=== PATIENT | male | born 1980 | race Caucasian/White ===

== ENCOUNTER 2022-09-04 14:06 | Emergency (ER) | payer MEDICAID, SELFPAY ==
[2022-09-04] VITALS (26 sets, daily range): BP systolic 159–175; BP diastolic 86–129; PULSE 72–100; RESP 14–21; TEMP 36.8; O2SAT 98–100
--- NOTE | 2022-09-04 14:19 | ED.SEIZURE ---
HPI - Seizure General Chief Complaint: Seizure Stated Complaint: Seizure History of Present Illness HPI Narrative: Pt had 3 brief seizures today wihtout a post ictal period. Pt says he has a history of seizures due to a TBI and has been off seizure meds for 4 months. Pt [facility] [place] and does not have PCP and [facility]. Pt feels fine now. Pt was upset because one of the medics mentioned psuedoseizure at arrival here and pt was offended. Discussed with him and he is now calm and wants to be treated. Related Data Allergies Allergy/AdvReac Type Severity Reaction Status Date / Time iohexol Allergy Unknown Verified 09/04/22 14:19 [From contrast - CT, X-RAY] Review of Systems Review of Systems: All systems reviewed & are unremarkable except as noted in HPI and below Exam Const: General: healthy appearing Nutritional Appearance: well nourished Orientation/consciousness: patient oriented x3 Limitations: no limitations HENMT: Head: normal to inspection Eyes: Pupils: Equal, round and reactive pupils present EOM: EOMs intact bilaterally Neck: Neck: normal visual inspection and no lymphadenopathy Chest: Chest palpation & inspection: normal inspection of the chest Resp: Effort & Inspection: normal respiratory effort Auscultation: clear to auscultation bilaterally Cardio: Rate: regular rate Rhythm: regular rhythm GI: GI Palp: Yes Soft to palpation Auscultation: normal bowel sounds Skin: General skin exam: normal color Rashes: no rashes Neuro: General: patient oriented x3, moves all extremities, no meningeal signs and no focal motor deficits Cranial nerves: Yes Nystagmus not present Speech: normal speech Extrem: General: normal to inspection and no clubbing, cyanosis or edema Psych: Appearance: grossly normal and well kempt Mental Status: mental status grossly normal Affect: normal affect Attitude: cooperative Course Course Emergency Course: pr sleeping and difficult to arouse after meds and seizure eentuall awake and alert said he takes gabapentin 1200 mg qd and keppra 400 mg bid Vital Signs Vital signs: Vital Signs Temperature 98.2 F 09/04/22 13:52 Pulse Rate 100 09/04/22 13:52 Respiratory Rate 17 09/04/22 13:52 Blood Pressure 165/86 H 09/04/22 13:52 Pulse Oximetry 99 09/04/22 13:52 Temperature 98.2 F 09/04/22 13:52 Pulse Rate 86 09/04/22 19:22 Respiratory Rate 16 09/04/22 19:22 Blood Pressure 160/120 H 09/04/22 19:22 Pulse Oximetry 98 09/04/22 19:17 MDM - Seizure Lab Data Result diagrams: 09/04/22 14:51 09/04/22 14:51 Labs: Lab Results 09/04/22 09/04/22 Range/Units 14:51 14:51 WBC 8.9 (4.5-10.0) K/mm3 RBC 4.91 (4.6-6.20) M/mm3 Hgb 15.1 (14.0-18.0) g/dL Hct 45.2 (42.0-52.0) % MCV 92.1 (80-100) fl MCH 30.8 (26-34) pg MCHC 33.4 (32-36) g/dl RDW 13.8 (11.5-14.5) % Plt Count 224 (150-375) k/mm3 MPV 9.5 (7.4-10.4) fl Immature Gran % (Auto) 1.2 H (0-0.5) % Neut % (Auto) 66.5 (45.5-73.1) % Lymph % (Auto) 24.0 (18.3-44.2) % [place] % (Auto) 4.7 (2.6-8.5) % Eos % (Auto) 3.0 (0-4.4) % Baso % (Auto) 0.6 (0.2-1.2) % Lymph # (Auto) 2.13 (0.9-3.2) K/mm3 [place] # (Auto) 0.4 (0.1-0.6) K/mm3 Eos # (Auto) 0.3 (0-0.3) K/mm3 Baso # (Auto) 0.1 (0.0-0.1) K/mm3 Abs Immat Gran (auto) 0.11 H (0.00-0.031) K/mm3 Absolute Neuts (auto) 5.9 (1.3-6.7) K/mm3 Absolute Nucleated RBC 0.0 (0.0-0.012) K/mm3 Nucleated RBC % 0.0 (0.0-0.2) % Sodium 144 (137-145) mmol/L Potassium 3.9 (3.4-5.0) mmol/L Chloride 106 (98-107) mmol/L Carbon Dioxide 26 (22-30) mmol/L Anion Gap 12 (8-16) mmol/L BUN 15 (9-20) mg/dL Creatinine 1.00 (0.7-1.3) mg/dL Estim Creat Clear Calc 84 ml/min Estimated GFR > 60 (59 - ) Glucose 95 (65-110) mg/dL Calcium 8.4 (8.4-10.2) mg/dL Total Bilirubin 0
[2022-09-04] MEDS: LORazepam INJ (*CRX) 2 MG/ML VIAL IV PUSH (14:20)
--- NOTE | 2022-09-04 14:42 | ECG_ITS ---
Measurements Intervals [place] Rate: 94 P: 32 CT: 137 QRS: 74 QRSD: 86 T: 209 QT: 341 QTc: 428 Interpretive Statements SINUS RHYTHM LOW QRS VOLTAGE IN EXTREMITY LEADS [QRS DEFLECTION < 0.5 mV IN LIMB LEADS] ST-T WAVE ABNORMALITY POOR R-WAVE PROGRESSION NO PREVIOUS ECG AVAILABLE FOR COMPARISON Electronically Signed On 09-05-2022 16:31:18 CDT by Tawana Suh M.D.
[2022-09-04 14:55] LABS: Basophils Absolute Auto 0.1 K/mm3 (0.0-0.1); Basophils Percent Auto 0.6 % (0.2-1.2); Eosinophils Absolute Auto 0.3 K/mm3 (0-0.3); Hematocrit 45.2 % (42.0-52.0); Hemoglobin 15.1 g/dL (14.0-18.0); Immature Granulocyte Absolute 0.11 K/mm3 (0.00-0.031); Immature Granulocyte Percent A 1.2 % (0-0.5); Lymphocytes Absolute Auto 2.13 K/mm3 (0.9-3.2); Mean Corpuscular HGB Conc 33.4 g/dl (32-36); Mean Corpuscular Hemoglobin 30.8 pg (26-34); Mean Corpuscular Volume 92.1 fl (80-100); Mean Platelet Volume 9.5 fl (7.4-10.4); Monocytes Absolute Auto 0.4 K/mm3 (0.1-0.6); Monocytes Percent Auto 4.7 % (2.6-8.5); Neutrophils Absolute Auto 5.9 K/mm3 (1.3-6.7); Neutrophils Percent Auto 66.5 % (45.5-73.1); Platelet Count Result 224 k/mm3 (150-375); Red Blood Count 4.91 M/mm3 (4.6-6.20); Red Cell Distribution Width 13.8 % (11.5-14.5); White Blood Count 8.9 K/mm3 (4.5-10.0)
[2022-09-04] MEDS: levETIRAcetam 1000MG/NACL100ML 1,000 MG/100 ML BAG 400 MG IVPB (14:57)
[2022-09-04 15:07] LABS: Alanine Aminotransferase 18 U/L (6-50); Albumin Level 3.8 g/dL (3.5-5.1); Alkaline Phosphatase 83 U/L (38-126); Anion Gap 12 mmol/L (8-16); Aspartate Amino Transferase 21 U/L (17-59); Bilirubin,Total 0.3 mg/dL (0.2-1.3); Blood Urea Nitrogen 15 mg/dL (9-20); Calcium 8.4 mg/dL (8.4-10.2); Carbon Dioxide 26 mmol/L (22-30); Chloride 106 mmol/L (98-107); Estimated CRCL calculation 84 ml/min; Estimated Glomerular Filt Rate > 60; Glucose 95 mg/dL (65-110); Potassium 3.9 mmol/L (3.4-5.0); Sodium 144 mmol/L (137-145)
--- NOTE | 2022-09-04 19:10 | PC.NURSE ---
upon attempt to discharge pt, pt stating that he does not want to go home. will not give reason. does c/o a headache rated 16/10. pt has urinal on bed with some urine in it but pt and bed saturated in urine. epd informed.
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
--- NOTE | 2022-09-04 19:57 | PC.NURSE ---
[employer] arrived at hospital at approximately 1940 and speaking with pt at this time. Pt phone, shoes,wet clothes, and d/c instruction bagged and at bedside.
--- NOTE | 2022-09-04 20:30 | PC.NURSE ---
Pt left in PD custody per security.
--- NOTE | 2022-09-04 22:40 | PC.NURSE ---
PT THEN REFUSED TO HAVE LABS DRAWN AT 2225. SO, EDP PUT PT UP FOR DISCHARGE. I WENT INTO PT'S ROOM #5 AT 2240. I STARTED TALKING TO HIM AND WENT TO REMOVE MONITORING EQUIPMENT, HE THEN LUNGED AT ME AND YELLED FUCK YOU TWICE AT ME. I WAS CONCERNED FOR MY OWN SAFETY WELL THE SAFETY MY STAFF, SO I AGAIN CALLED [facility]. WHEN 2 OFFICERS FROM [employer] ARRIVED I EXPLAINED TO THEM THAT I WISHED TO PRESS CHARGES, [employer] DID ARREST HIM, AND REMOVE HIM FROM OUR PREMISES.
== END 2022-09-04 20:30 ==
PROVIDERS: Emergency Provider Emergency Medicine
DX: R56.1 Post traumatic seizures (principal); S06.9XAS Unspecified intracranial injury with loss of consciousness status unknown, sequela; X58.XXXS Exposure to other specified factors, sequela
CPT/HCPCS: 36415; 80053; 85025; 93005; 96374; 96375; 99284; J1953; J2060

== ENCOUNTER 2022-09-04 21:38 | Emergency (ER) | payer MEDICAID, SELFPAY ==
[2022-09-04 21:41] VITALS: BP 193/156; PULSE 93; RESP 16; TEMP 37.2; O2SAT 100
--- NOTE | 2022-09-04 22:12 | PC.NURSE ---
Pt was here in the ER and discharged. Pt was brought back in via [facility]. Pt was brought back by EMS due to multiple seizures. Pt was placed in the bed and turning to the side and non-responsive upon assessment. Pt states he can feel when he is about to seizures. pt did have multiple episodes while assessing patient. DR Addison aware
--- NOTE | 2022-09-04 22:27 | PC.NURSE ---
At 22:27 patient refused to let me draw blood. His words yea we are not doing that - Edith
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
--- NOTE | 2022-09-04 22:31 | PC.NURSE ---
Pt refusing blood draw from staff.
--- NOTE | 2022-09-04 22:41 | PC.NURSE ---
pt refused blood draw from [facility] [employer].
--- NOTE | 2022-09-04 22:53 | PC.NURSE ---
PD is here escorted pt out.
== END 2022-09-04 23:21 ==
PROVIDERS: Emergency Provider Emergency Medicine
DX: R56.9 Unspecified convulsions (principal); Z87.820 Personal history of traumatic brain injury
CPT/HCPCS: 99281

== ENCOUNTER 2022-09-05 14:17 | Inpatient (IN) | payer MEDICAID, SELFPAY ==
--- NOTE | ~2022-09-05 | XR_ITS ---
EXAMINATION: XR chest 2V DATE: 09/05/2022 17:31 INDICATION: Left chest pain. TECHNIQUE: Frontal and lateral views of the chest were obtained. COMPARISON: None. FINDINGS: The chest demonstrates clear lungs without pneumonia, pleural effusion, or pneumothorax. Th e heart size is normal. There are old healed left rib fractures. IMPRESSION: 1. No acute cardiopulmonary disease. Reviewed, dictated and finalized at location A.
--- NOTE | ~2022-09-05 | CT_ITS ---
EXAMINATION: CT brain wo con DATE: 09/08/2022 14:43 INDICATION: seizure . TECHNIQUE: Computed tomography (CT) of the head was performed without intravenous contrast. The mA wa s adjusted according to patient size. Iterative reconstruction technique was employed. The dose-lengt h product was 605.33 mGy-cm. COMPARISON: 09/05/2022 FINDINGS: No acute intracranial hemorrhage or extra-axial fluid collection. No hydrocephalus, mass, or herniation. No acute ischemic infarct. Unremarkable dural venous sinus attenuation. No acute osseous abnormality. The aerated spaces are clear. IMPRESSION: No acute intracranial process. Reviewed, dictated and finalized at location K.
--- NOTE | ~2022-09-05 | CT_ITS ---
EXAMINATION: CT BRAIN W/O DATE: 09/05/2022 17:27 INDICATION: Headache. TECHNIQUE: Computed tomography (CT) of the head was performed without intravenous contrast. The dose- length product was 605.33 mGy-cm. Automated exposure control and iterative reconstruction technique w ere employed. COMPARISON: No prior studies for comparison. FINDINGS: Normal brain parenchymal volume for age. Normal stephen-white differentiation. No acute intrac ranial hemorrhage, infarction, mass or mass effect. No ventriculomegaly or midline shift. Midline sagittal images demonstrate a normal corpus callosum, c raniovertebral junction and sella turcica. Basilar cisterns are patent. Paranasal sinuses and mastoids are pneumatized. No depressed skull fractures. IMPRESSION: 1. No acute intracranial abnormality. Reviewed, dictated and finalized at location A.
[2022-09-05 14:40] VITALS: BP 160/100; PULSE 94; RESP 18; O2SAT 99
--- NOTE | 2022-09-05 17:15 | ECG_ITS ---
Measurements Intervals [place] Rate: 90 P: 40 [place]: 135 QRS: 20 QRSD: 77 T: 5 QT: 352 QTc: 432 Interpretive Statements SINUS RHYTHM WITH OCCASIONAL SUPRAVENTRICULAR PREMATURE COMPLEXES MINIMAL VOLTAGE CRITERIA FOR LVH, CONSIDER NORMAL VARIANT [MEETS CRITERIA IN ONE OF: R(aVL), S(V1), R(V5), R(V5/V6)+S(V1)] NONSPECIFIC T-WAVE ABNORMALITY COMPARED TO ECG 09/04/2022 14:18:51 NO SIGNIFICANT CHANGES Electronically Signed On 09-06-2022 13:35:38 CDT by Bteo Nance M.D.
--- NOTE | 2022-09-05 17:17 | ED.SEIZURE ---
HPI - Seizure General Chief Complaint: Seizure <ABHIJEET Acevedo Last Filed: 09/06/22 00:41> Stated Complaint: seizures <ABHIJEET Acevedo Last Filed: 09/06/22 00:41> Time Seen by Provider: 09/05/22 17:06 <ABHIJEET Acevedo Last Filed: 09/06/22 00:41> Source: patient <ABHIJEET Acevedo Last Filed: 09/06/22 00:41> Mode of arrival: ambulatory <ABHIJEET Acevedo Last Filed: 09/06/22 00:41> Limitations: no limitations <ABHIJEET Acevedo Last Filed: 09/06/22 00:41> History of Present Illness HPI Narrative: This is a 42-year-old male that presents to the emergency department for seizure-like activity earlier today. Reports known history of seizures. He has not been taking his antiepileptics. He does have a prescription for them, but has not filled it. He also reports he has had a headache today. He has not taken any medication for his headache. Reports his blood pressure has been elevated. He also reported that he had an episode of sharp, substernal chest pain that lasted for about an hour and was relieved without intervention. Denies fever, vision changes, shortness of breath, vomiting, numbness, or weakness. <ABHIJEET Acevedo Last Filed: 09/06/22 00:41> Seizure History: Yes <ABHIJEET Acevedo Last Filed: 09/06/22 00:41> Related Data Allergies/Adverse Reactions: Allergies Allergy/AdvReac Type Severity Reaction Status Date / Time iohexol Allergy Unknown Verified 09/04/22 14:19 [From contrast - CT, X-RAY] <ABHIJEET Acevedo Last Filed: 09/06/22 00:41> Review of Systems Review of Systems: CONSTITUTIONAL: Denies fever EYES: Denies visual changes CARDIOVASCULAR: Reports chest pain RESPIRATORY: Denies dyspnea. GASTROINTESTINAL: Denies vomiting NEUROLOGIC: Reports headache. Denies numbness, or weakness. 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 HEAD: Normocephalic, atraumatic. EYES: PERRLA and EOMI. ENT: Nares clear, no rhinorrhea or epistaxis. Mucous membranes moist. Oropharynx without tonsillar hypertrophy exudate or other lesions. Bilateral TMs pearly stephen non-bulging NECK: Supple. No adenopathy or masses. CHEST: Clear to auscultation. No respiratory distress. No wheezes rales or rhonchi HEART: Regular rate and rhythm. No murmur heard. Normal peripheral pulses. EXTREMITIES: Normal range of motion. No edema. Strength equal in bilateral upper and lower extremities (5/5) SKIN: Warm, dry, no rash. NEURO: No focal deficits. Alert and oriented x3. 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 Heart is regular rate and rhythm without murmur lungs clear to station bilaterally abdomen soft nontender. Patient states he feels anxious at this time and has a headache he denies any chest pain or shortness of breath discussed with patient need for admission all questions answered at this time <Estevan Silvestre
[2022-09-05] MEDS: levETIRAcetam 500MG/NACL 100ML 500 MG/100 ML BAG 400 MG IVPB (17:46)
[2022-09-05 17:56] LABS: Basophils Percent Auto 0.4 % (0.2-1.2); Eosinophils Absolute Auto 0.1 K/mm3 (0-0.3); Eosinophils Percent Auto 1.2 % (0-4.4); Hematocrit 48.4 % (42.0-52.0); Hemoglobin 16.2 g/dL (14.0-18.0); Immature Granulocyte Absolute 0.06 K/mm3 (0.00-0.031); Immature Granulocyte Percent A 0.5 % (0-0.5); Lymphocytes Absolute Auto 1.75 K/mm3 (0.9-3.2); Mean Corpuscular HGB Conc 33.5 g/dl (32-36); Mean Corpuscular Hemoglobin 30.5 pg (26-34); Mean Platelet Volume 9.3 fl (7.4-10.4); Monocytes Absolute Auto 0.5 K/mm3 (0.1-0.6); Monocytes Percent Auto 4.3 % (2.6-8.5); Neutrophils Absolute Auto 8.5 K/mm3 (1.3-6.7); Neutrophils Percent Auto 77.6 % (45.5-73.1); Platelet Count Result 226 k/mm3 (150-375); Red Blood Count 5.32 M/mm3 (4.6-6.20); White Blood Count 10.9 K/mm3 (4.5-10.0)
[2022-09-05 18:04] VITALS: PULSE 86
[2022-09-05 18:08] LABS: Ethanol < 10 mg/dL (<10)
[2022-09-05 18:10] LABS: Alanine Aminotransferase 20 U/L (6-50); Albumin Level 4.4 g/dL (3.5-5.1); Alkaline Phosphatase 109 U/L (38-126); Anion Gap 12 mmol/L (8-16); Aspartate Amino Transferase 25 U/L (17-59); Bilirubin,Total 0.9 mg/dL (0.2-1.3); Blood Urea Nitrogen 14 mg/dL (9-20); Calcium 9.1 mg/dL (8.4-10.2); Carbon Dioxide 25 mmol/L (22-30); Chloride 100 mmol/L (98-107); Estimated CRCL calculation 95 ml/min; Estimated Glomerular Filt Rate > 60; Glucose 96 mg/dL (65-110); Potassium 3.9 mmol/L (3.4-5.0); Sodium 137 mmol/L (137-145)
--- NOTE | 2022-09-05 18:11 | PC.NURSE ---
patient reports that he is unable to give urine sample at this time.
[2022-09-05 18:21] LABS: Troponin I 0.028 ng/mL (0.000-0.034)
[2022-09-05 19:34] VITALS: BP 180/122; PULSE 93; RESP 17; O2SAT 98
[2022-09-05] MEDS: LABETALOL HCL INJ 100 MG/20 ML VIAL 20 MG IV PUSH (19:44)
[2022-09-05 20:26] LABS: Appearance Urine Clear (Clear); Bilirubin Urine Negative (Negative); Blood Urine Negative (Negative); Color Urine Yellow (Yellow); Glucose Urine UA Negative (Negative); Ketones Urine Negative (Negative); Leukocyte Esterase Ur Negative LEU/UL (Negative); Nitrate Urine Negative (Negative); Protein Urine 1+ mg/dL (Negative); Specific Grav Ur 1.015 (1.001-1.035); pH Urine 8.5 (5.0-9.0)
[2022-09-05 20:31] LABS: Mucus Urine Rare /lpf; RBC Urine 0-2 /hpf (0-2)
[2022-09-05 20:34] LABS: Add Urine Microscopic? YES
[2022-09-05 20:43] LABS: Amphetamine Screen Urine Negative (Negative); Barbiturate Screen Urine Negative (Negative); Benzodiazepines Screen Urine Positive (Negative); Cannabinoid Screen Urine Positive (Negative); Cocaine Screen Urine Negative (Negative); Methadone Screen Urine Negative (Negative); Opiate Screen Urine Negative (Negative); Phencyclidine Screen Urine Negative (Negative)
[2022-09-05] MEDS: hydrALAZINE HCL 20 MG/ML VIAL 10 MG IV PUSH (20:56)
--- NOTE | 2022-09-05 21:10 | ECG_ITS ---
Measurements Intervals [place] Rate: 92 P: 49 [place]: 136 QRS: 35 QRSD: 76 T: 257 QT: 352 QTc: 435 Interpretive Statements SINUS RHYTHM WITH OCCASIONAL SUPRAVENTRICULAR PREMATURE COMPLEXES LEFT VENTRICULAR HYPERTROPHY AND ST-T CHANGE [VOLTAGE CRITERIA PLUS ST/T ABNORMALITY] ABNORMAL ECG COMPARED TO ECG 09/05/2022 18:12:40 ST (T WAVE) DEVIATION NOW PRESENT Electronically Signed On 09-06-2022 13:39:21 CDT by Beto Nance M.D.
--- NOTE | 2022-09-05 21:15 | PM.IMHP ---
H&P: HPI History of Present Illness Date/Time: 09/05/22 21:15 Chief Complaint: seizure Narrative: This is a 42-year-old male with past medical history significant for epilepsy, patient comes to the hospital after he had a seizure on witnessed however states that he had aura and subsequent seizure. [place] and has not established his care yet in with a primary care physician and has been out of his meds for a while states that [facility]. Patient denies the use of any illicit drugs or alcohol, denies any fevers, rigors, chills, nausea, vomiting, abdominal pain, at the time of my visit complained of a headache. Patient's blood pressure was found to be elevated as well and also has a blurry vision. Patient had been to the emergency room the day before x 2. preliminary workup was significant for in emergency room upon presentation blood pressure of 180/122. a chest x-ray was reported as: IMPRESSION: 1. No acute cardiopulmonary disease. A CT OF THE HEAD WAS REPORTED : IMPRESSION: 1. No acute intracranial abnormality. EKG: SINUS RHYTHM WITH OCCASIONAL SUPRAVENTRICULAR PREMATURE COMPLEXES LEFT VENTRICULAR HYPERTROPHY AND ST-T CHANGE [VOLTAGE CRITERIA PLUS ST/T ABNORMALITY] COMPARED TO ECG 09/05/2022 18:12:40 ST (T WAVE) DEVIATION NOW PRESENT Review of Systems Review of Systems: unwitnessed seizure, aura, headache, blurry vision, uncontrolled blood pressure. Constitutional: Constitutional: Denies chills, Denies fatigue, Denies fever(s), Reports headache(s), Denies malaise, Denies night sweats, Denies poor appetite and Denies weakness Comments: unwitnessed seizure, aura, headache, blurry vision, uncontrolled blood pressure. Eyes: Eyes: Reports blurry vision ENT: Denies dysphagia, Denies vertigo, Denies dizziness, Denies odynophagia and Denies disequilibrium Cardiovascular: Cardiovascular: Denies chest pain, Denies syncope, Denies irregular heart rhythm, Denies lightheadedness, Denies palpitations and Denies dyspnea on exertion Respiratory: Respiratory: Denies chest congestion, Denies cough, Denies excessive phlegm production, Denies pain on inspiration and Denies dyspnea Gastrointestinal: Gastrointestinal: Denies abdominal pain, Denies dyspepsia, Denies heartburn, Denies nausea and Denies vomiting Genitourinary: Genitourinary: Denies dysuria Musculoskeletal: Musculoskeletal: Denies back pain, Denies myalgias, Denies arthralgias and Denies joint swelling Integumentary/Breasts: Skin/Breast: Denies rash Neurologic: Denies vertigo, Denies dizziness, Reports headache(s), Denies focal weakness, Reports seizure-like activity and Denies Sensory deficit (Neuro) Psychiatric: Psychiatric: Reports no additional psychiatric complaints and Reports as per HPI Endocrine: Endocrine: Denies cold intolerance, Denies flushing, Denies heat intolerance, Denies polyphagia, Denies polydipsia and Denies palpitations Hematologic/Lymphatic: Hematologic/Lymphatic: Reports no additional hematologic/lymphatic complaints and Reports as per HPI Allergic/Immunologic: Allergic/Immunologic: Reports no additional allergic/immunologic complaints and Reports as per HPI PMFSH Past Medical History Medical History (Updated 09/06/22 @ 02:39 by Ravi Allen MD) Seizure-like activity TBI (traumatic brain injury) Family History Family History (Updated 09/06/22 @ 01:22 by Shruthi Price RN) Other Unknown family medical history Social History Social History (Updated 09/05/22 @ 20:46 by Janet Luna PA-C) Smoking status: Never smoker Alcohol intake: never Substance use: current Substance use type: marijuana 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
[2022-09-05 21:24] VITALS: BP 153/100; PULSE 96; RESP 17; O2SAT 97
[2022-09-05 21:36] LABS: Troponin I 0.034 ng/mL (0.000-0.034)
[2022-09-05] MEDS: LORazepam INJ (*CRX) 2 MG/ML VIAL 0.5 MG IV PUSH (21:46)
[2022-09-05 23:24] LABS: SARS-CoV-2 RNA PCR Negative
[2022-09-06] VITALS (9 sets, daily range): BP systolic 107–153; BP diastolic 69–114; PULSE 69–90; RESP 16–18; TEMP 36.3–37; O2SAT 98–100; BMI 29.4
--- NOTE | 2022-09-06 01:03 | PC.NURSE ---
This patient, Sourav Watts, was admitted to IMU Room 207-01. Patient/family oriented to hospital policies and general routines including ID bracelet, bed and alarms, visiting hours, pain management, procedures, bathroom and other care routines, personal items, smoking policy, room service/diet, and visiting hours. Information on how to activate the Rapid Response Team has been discussed. Patient/Family are encouraged to report perceived risks to care and to ask questions if they do not understand what they are told or what they should do.
[2022-09-06 03:32] LABS: Troponin I 0.037 ng/mL (0.000-0.034)
--- NOTE | 2022-09-06 04:06 | PC.NURSE ---
critical results called on trop of 0.037. Dr Allen ordered a repeat in 3 hours.
[2022-09-06] MEDS: amLODIPine BESYLATE 5 MG TABLET 10 MG PO (08:42)
[2022-09-06] MEDS: lisinopriL 10 MG TABLET PO ×2 (08:42→17:02)
[2022-09-06 09:34] LABS: Troponin I 0.036 ng/mL (0.000-0.034)
[2022-09-06] MEDS: ACETAMINOPHEN 325 MG TABLET 650 MG PO ×3 (10:00→20:09)
[2022-09-06] MEDS: levETIRAcetam 500 MG TABLET PO ×2 (10:01→20:07)
--- NOTE | 2022-09-06 12:22 | PM.IMPN ---
Progress Note: A&P Assessment and Plan (1) Seizure-like activity: Code(s): R56.9 - Unspecified convulsions Status: Acute Assessment and Plan: will load with Claire patient has been out of meds for several months seizure precautions supportive care CT head reviewed (2) Hypertensive urgency: Code(s): I16.0 - Hypertensive urgency Status: Acute Assessment and Plan: patient has been out of meds hydralazine p.r.n. started on amlodipine and lisinopril daily adjust as needed (3) Chest pain: Qualifiers: Chest pain type: unspecified Qualified Code(s): R07.9 - Chest pain, unspecified Code(s): R07.9 - Chest pain, unspecified Status: Acute Assessment and Plan: no chest pain at the time of my visit EKG with no acute changes (4) Hx of seizure disorder: Code(s): Z86.69 - Personal history of other diseases of the nervous system and sense organs Status: Acute Assessment and Plan: patient with history of epilepsy however been out of meds for several months needs to establish care in the area Subjective Date/time seen: 09/06/22 12:22 Patient was seen during the morning rounds today. Patient is feeling much better. No overnight seizure activity. No shortness of breath or chest pain. Mood stable. Review of Systems Constitutional: Constitutional: Denies chills, Denies fatigue, Denies fever(s), Reports headache(s), Denies malaise, Denies night sweats, Denies poor appetite and Denies weakness Eyes: Eyes: Reports blurry vision ENT: Denies dysphagia, Denies vertigo, Denies dizziness, Reports headache(s), Denies odynophagia and Denies disequilibrium Cardiovascular: Cardiovascular: Denies chest pain, Denies syncope, Denies irregular heart rhythm, Denies lightheadedness, Denies palpitations, Denies dyspnea and Denies dyspnea on exertion Respiratory: Respiratory: Denies chest congestion, Denies cough, Denies excessive phlegm production, Denies pain on inspiration, Denies dyspnea and Denies dyspnea on exertion Gastrointestinal: Gastrointestinal: Denies abdominal pain, Denies dysphagia, Denies dyspepsia, Denies heartburn, Denies nausea, Denies odynophagia and Denies vomiting Genitourinary: Genitourinary: Denies dysuria Musculoskeletal: Musculoskeletal: Denies back pain, Denies myalgias, Denies arthralgias and Denies joint swelling Integumentary/Breasts: Skin/Breast: Denies rash Neurologic: Denies vertigo, Denies dizziness, Denies syncope, Reports headache(s), Denies focal weakness, Reports seizure-like activity, Denies Sensory deficit (Neuro), Denies disequilibrium and Denies weakness Psychiatric: Psychiatric: Reports no additional psychiatric complaints and Reports as per HPI Endocrine: Endocrine: Denies cold intolerance, Denies fatigue, Denies flushing, Denies heat intolerance, Denies polyphagia, Denies polydipsia and Denies palpitations Hematologic/Lymphatic: Hematologic/Lymphatic: Reports no additional hematologic/lymphatic complaints and Reports as per HPI Allergic/Immunologic: Allergic/Immunologic: Reports no additional allergic/immunologic complaints and Reports as per HPI Exam Narrative: Patient is laying in a stretcher Const: General: comfortable, no acute distress, well developed, alert, awake, average body habitus and other ( well-appearing, apprehensive.) Nutritional Appearance: average body habitus Orientation/consciousness: patient oriented x3 HENMT: Head: normal to inspection, normocephalic and atraumatic Ears: hearing grossly normal bilaterally Face/Nose/Sinus: normal facial exam Face and sinus: normal facial exam Eyes: General: appearance normal, both eyes and all related structures Pupils: Equal, round and reactive pupils present EOM: EOMs intact bilaterally Neck: Neck: full ROM, no lymphadenopathy and no JVD Thyroid: thyroid normal Lymphatic: no lymphadenopathy noted Resp: Effort & Inspection: normal respirat
[2022-09-06 13:17] LABS: Troponin I 0.021 ng/mL (0.000-0.034)
[2022-09-06 19:56] LABS: Troponin I 0.019 ng/mL (0.000-0.034)
--- NOTE | 2022-09-06 23:44 | PC.NURSE ---
Pt received from [facility].
--- NOTE | 2022-09-06 23:45 | PC.NURSE ---
This patient, Sourav Watts, was transferred to room 250 on 09/06/22 at 2340. Personal belongings sent with patient. Report given to CONNER Abarca. Appropriate documentation sent with patient.
[2022-09-07] VITALS: BP 116/69; PULSE 67; RESP 18; TEMP 36.3; O2SAT 100
--- NOTE | 2022-09-07 | ECHO_ITS ---
Patient Info Name: Sourav Watts Age: 42 years : 1980 Gender: Male Ht: 66 in Wt: 185 lbs BSA: 2.00 m2 HR: 75 bpm BP: 143 / 89 mmHg Heart Rhythm: Sinus Rhythm Technical Quality: Good Exam Date: 09/07/2022 1:07 PM Exam Location: [facility] Patient Status: Outpatient Admit Date: 09/05/2022 Staff Ordering Physician: Harman Paez MD Attending Provider: Ravi Allen MD Referring Physician: Philippe SKINNER; Exam Type: CA echo doppler color flow Study Info Indications R07.9 - Chest pain, unspecified Complete two-dimensional, color flow and Doppler transthoracic echocardiogram is performed. Summary 1. Complete two-dimensional, color flow and Doppler transthoracic echocardiogram is performed. 2. Mild concentric left ventricular hypertrophy with normal systolic function and no wall motion abnormalities. 3. Grade 1 diastolic noncompliance. Left Ventricle Left ventricular chamber dimension is normal. Left ventricular systolic function is normal, estimated at 60-65%. The left ventricular diastolic function is grade I diastolic dysfunction. Right Ventricle Right ventricular chamber dimension is normal. Left Atria Left atrial chamber dimension is normal. Right Atria Right atrial chamber dimension is normal. Aortic Valve The aortic valve is normal. Pulmonic Valve The pulmonic valve is not well visualized. Mitral Valve The mitral valve has normal leaflets. Tricuspid Valve The tricuspid valve leaflets are normal. Pericardium/Pleural The pericardium appears normal. Aorta The aortic root size at the sinus of Valsalva is normal. Left Ventricular Outflow Tract Name Value Normal LVOT 2D LVOT Diameter 2.0 cm LVOT Doppler LVOT Peak Gradient 5 mmHg LVOT Mean Gradient 4 mmHg LVOT VTI 20 cm LVOT VTI/AV VTI Ratio 0.8 LVOT Stroke Volume 63 ml LVOT CO 5.2 l/min LVOT CI 2.6 l/min/m2 Mitral Valve Name Value Normal MV Doppler MV Peak Gradient 4 mmHg MV Mean Gradient 2 mmHg MV Decel Lares 478 cm/s2 MV PHT 55 ms MV Area (PHT) 4.0 cm2 4.0-5.0 MV Area (Cont Eq VTI) 2.2 cm2 MV Diastolic Function MV E Peak Velocity 91 cm/s MV A Peak Velocity 79 cm/s MV E/A 1.2 MV Decel Time 191 ms MV Annular TDI
[2022-09-07 04:17] VITALS: BP 102/54; PULSE 61; RESP 16; TEMP 36.2; O2SAT 100
[2022-09-07 09:19] VITALS: BP 143/89
[2022-09-07] MEDS: amLODIPine BESYLATE 5 MG TABLET 10 MG PO (09:22)
[2022-09-07] MEDS: levETIRAcetam 500 MG TABLET PO ×2 (09:23→21:32)
[2022-09-07] MEDS: ACETAMINOPHEN 325 MG TABLET 650 MG PO ×3 (09:23→21:35)
[2022-09-07] MEDS: lisinopriL 10 MG TABLET PO ×2 (09:23→16:57)
--- NOTE | 2022-09-07 11:44 | PC.NURSE ---
Spoke with Dr. Paez upon his request from earlier this morning to let him know that care coordination has seen patient and will be sending him with a cab voucher at time of discharge and that it can be set up today.
--- NOTE | 2022-09-07 12:01 | PM.IMPN ---
Progress Note: A&P Assessment and Plan (1) Seizure-like activity: Code(s): R56.9 - Unspecified convulsions Status: Acute Assessment and Plan: will load with Claire patient has been out of meds for several months seizure precautions supportive care CT head reviewed (2) Hypertensive urgency: Code(s): I16.0 - Hypertensive urgency Status: Acute Assessment and Plan: patient has been out of meds hydralazine p.r.n. started on amlodipine and lisinopril daily adjust as needed (3) Chest pain: Qualifiers: Chest pain type: unspecified Qualified Code(s): R07.9 - Chest pain, unspecified Code(s): R07.9 - Chest pain, unspecified Status: Acute Assessment and Plan: no chest pain at the time of my visit patient to cardiac enzymes was out of 5 was slightly abnormal. Will get cardiology consult and order echo. (4) Hx of seizure disorder: Code(s): Z86.69 - Personal history of other diseases of the nervous system and sense organs Status: Acute Assessment and Plan: patient with history of epilepsy however been out of meds for several months needs to establish care in the area Subjective Date/time seen: 09/07/22 12:01 patient was seen during the morning rounds today. Patient denies any chest pain or shortness of breath. No abdominal pain or nausea. No overnight Seizure activity. Review of Systems Constitutional: Constitutional: Denies chills, Denies fatigue, Denies fever(s), Reports headache(s), Denies malaise, Denies night sweats, Denies poor appetite and Denies weakness Eyes: Eyes: Reports blurry vision ENT: Denies dysphagia, Denies vertigo, Denies dizziness, Reports headache(s), Denies odynophagia and Denies disequilibrium Cardiovascular: Cardiovascular: Denies chest pain, Denies syncope, Denies irregular heart rhythm, Denies lightheadedness, Denies palpitations, Denies dyspnea and Denies dyspnea on exertion Respiratory: Respiratory: Denies chest congestion, Denies cough, Denies excessive phlegm production, Denies pain on inspiration, Denies dyspnea and Denies dyspnea on exertion Gastrointestinal: Gastrointestinal: Denies abdominal pain, Denies dysphagia, Denies dyspepsia, Denies heartburn, Denies nausea, Denies odynophagia and Denies vomiting Genitourinary: Genitourinary: Denies dysuria Musculoskeletal: Musculoskeletal: Denies back pain, Denies myalgias, Denies arthralgias and Denies joint swelling Integumentary/Breasts: Skin/Breast: Denies rash Neurologic: Denies vertigo, Denies dizziness, Denies syncope, Reports headache(s), Denies focal weakness, Reports seizure-like activity, Denies Sensory deficit (Neuro), Denies disequilibrium and Denies weakness Psychiatric: Psychiatric: Reports no additional psychiatric complaints and Reports as per HPI Endocrine: Endocrine: Denies cold intolerance, Denies fatigue, Denies flushing, Denies heat intolerance, Denies polyphagia, Denies polydipsia and Denies palpitations Hematologic/Lymphatic: Hematologic/Lymphatic: Reports no additional hematologic/lymphatic complaints and Reports as per HPI Allergic/Immunologic: Allergic/Immunologic: Reports no additional allergic/immunologic complaints and Reports as per HPI Exam Narrative: Patient is laying in a stretcher Const: General: comfortable, no acute distress, well developed, alert, awake, average body habitus and other ( well-appearing, apprehensive.) Nutritional Appearance: average body habitus Orientation/consciousness: patient oriented x3 HENMT: Head: normal to inspection, normocephalic and atraumatic Ears: hearing grossly normal bilaterally Face/Nose/Sinus: normal facial exam Face and sinus: normal facial exam Eyes: General: appearance normal, both eyes and all related structures Pupils: Equal, round and reactive pupils present EOM: EOMs intact bilaterally Neck: Neck: full ROM, no lymphadenopathy and no JVD Thyroid: thyroid no
[2022-09-07] MEDS: ASPIRIN 325 MG ENTERIC TABLET PO (13:52)
[2022-09-07 16:55] VITALS: BP 149/91; PULSE 72; RESP 18; TEMP 36.5; O2SAT 100
[2022-09-07 21:47] VITALS: BP 143/92; PULSE 84; RESP 20; TEMP 36.4; O2SAT 100
[2022-09-08] VITALS (14 sets, daily range): BP systolic 107–178; BP diastolic 73–118; PULSE 63–96; RESP 16–26; TEMP 36.1–36.9; O2SAT 94–100
[2022-09-08 08:06] LABS: Hematocrit 46.6 % (42.0-52.0); Mean Corpuscular HGB Conc 32.2 g/dl (32-36); Mean Corpuscular Hemoglobin 29.9 pg (26-34); Mean Platelet Volume 9.9 fl (7.4-10.4); Platelet Count Result 182 k/mm3 (150-375); Red Blood Count 5.01 M/mm3 (4.6-6.20); Red Cell Distribution Width 14.1 % (11.5-14.5); White Blood Count 8.5 K/mm3 (4.5-10.0)
[2022-09-08 08:19] LABS: Anion Gap 9 mmol/L (8-16); Blood Urea Nitrogen 13 mg/dL (9-20); Calcium 8.4 mg/dL (8.4-10.2); Carbon Dioxide 28 mmol/L (22-30); Chloride 102 mmol/L (98-107); Estimated CRCL calculation 89 ml/min; Estimated Glomerular Filt Rate > 60; Glucose 96 mg/dL (65-110); Sodium 139 mmol/L (137-145)
[2022-09-08] MEDS: amLODIPine BESYLATE 5 MG TABLET 10 MG PO (09:40)
[2022-09-08] MEDS: ASPIRIN 325 MG ENTERIC TABLET PO (09:40)
[2022-09-08] MEDS: levETIRAcetam 500 MG TABLET PO (09:40)
[2022-09-08] MEDS: lisinopriL 10 MG TABLET PO ×2 (09:41→16:28)
--- NOTE | 2022-09-08 10:49 | PM.CNCAR ---
Assessment and Plan Assessment and plan (1) Chest pain: Qualifiers: Chest pain type: unspecified Qualified Code(s): R07.9 - Chest pain, unspecified Code(s): R07.9 - Chest pain, unspecified Status: Acute Plan This is a 5 unfortunate 42-year-old gentleman who is homeless and came into the hospital because of seizures apparently because he was without his anticonvulsant medication. He also with without antihypertensives and was significantly hypertensive. He is having no symptoms at all that are remotely suggestive of an acute coronary syndrome. He has 2 years of unremitting mild chest pain that in no way is concerning for coronary artery disease. His troponin levels were sampled multiple times. Two of the samples are just barely out of normal range. This does not trigger concern on my behalf. Furthermore his echocardiogram does not show any ischemic wall motion abnormalities. I do not have any specific cardiac suggest suggestions other than hopefully the case workers confined this gentleman a place to resides so he is not on the street and has access to his medications Beto Nance MD [facility] History of Present Illness History of Present Illness Consult date/time: 09/08/22 10:49 Consult reason: chest pain Reason For Visit: Hypertensive Urgency Narrative: This is a 42-year-old man I am seeing at the request of the hospitalist because of chest pain and abnormal troponin level. The patient is unknown to me prior to this encounter. He is not known to have any cardiac problems and has been in the hospital here now for about 3 days after having seizure activity and was evaluated in the emergency room and admitted. Apparently there are social/economic issues with his family he is a homeless gentleman and a was kicked out of his residence where he was staying with family members and was unable to have access to his anticonvulsant medications. As a result of that he was having seizures and was brought to the hospital and had been admitted. He states that he has a history of constant unremitting chest pain for 2 years. The discomfort is sometimes sharp sometimes dull but it is never alleviated and for the last 2 years it is in the center of the chest does not radiate any other location it is not associated with nausea vomiting diaphoresis. It is not triggered by or worsened by exertion. It is simply there and has been there for a couple of years. His electrocardiograms in the hospital shows sinus rhythm with LVH and secondary repolarization abnormalities. He had an echocardiogram done which demonstrates some LVH with normal with normal contractility and no wall motion abnormalities. He had 4 or 5 troponin levels done in a couple of a more barely out of normal range at 0.03. He is resting comfortably in bed and watching television. He says his see seizures are under control it appears he has continued to be hospitalized for assistance with placement since he is homeless and otherwise does not have access to his medication that he needs for seizures. He is also hypertensive he has been placed on a regimen of amlodipine and lisinopril and has orders for p.r.n. hydralazine. Review of Systems Constitutional: Constitutional: Reports no additional constitutional complaints Eyes: Eyes: Reports no additional eye complaints ENT: Reports system reviewed and no additional complaints, except as documented Cardiovascular: Cardiovascular: Reports no additional cardiovascular complaints Respiratory: Respiratory: Reports no additional respiratory complaints Gastrointestinal: Gastrointestinal: Reports no additional gastrointestinal complaints Musculoskeletal: Musculoskeletal: Reports arthralgias Integumentary/Breasts: Skin/Breast: Reports system reviewed and no additional complaints, except as docu Neurologic: Reports as per HPI Endocrine: Endocrine: Reports no additional endocrine complaints Hematologic/Lymphatic:
--- NOTE | 2022-09-08 12:28 | WPDNEURCNPN ---
Assessment and Plan Assessment and plan (1) Seizure-like activity: Code(s): R56.9 - Unspecified convulsions Status: Acute Plan Recurrence of the seizures because of the noncompliance with the medication will be continued on Keppra all the pros and cons have been discussed with him Consult date: 09/08/22 Time Seen: 12:00 HPI: Sourav Watts is a 42 year old male admitted to the hospital through the emergency room for the complaints of recurrent seizures and also noncompliance with the anticonvulsants what have been prescribed in the past patient is a homeless person with noncompliance with the medication in addition to the history of never smoking current substance user and initially nonfocal examination in the emergency room with normal vital signs except blood pressure 160/100 normal routine lab with positive drug screen for benzodiazepine and cannabinoids at present receiving levetiracetam 500 mg q.12 hours in addition to other medications Review of Systems Review of Systems: All systems reviewed & are unremarkable except as noted in HPI and below PMFSH Past Medical History Medical History (Updated 09/06/22 @ 02:39 by Ravi Allen MD) Seizure-like activity TBI (traumatic brain injury) Family History Family History (Updated 09/06/22 @ 01:22 by Shruthi Price RN) Other Unknown family medical history Social History Social History (Updated 09/05/22 @ 20:46 by Janet Luna PA-C) Smoking status: Never smoker Alcohol intake: never Substance use: current Substance use type: marijuana 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llergies Allergy/AdvReac Type Severity Reaction Status Date / Time iohexol Allergy Unknown Verified 09/04/22 14:19 [From contrast - CT, X-RAY] Vital Signs Vital Signs - 24 hr 09/07/22 16:55 09/07/22 21:47 09/08/22 04:56 Temperature 36.5 C 36.4 C 36.4 C Pulse Rate 72 84 63 Respiratory Rate 18 20 20 Blood Pressure 149/91 H 143/92 H 107/73 Pulse Oximetry 100 100 100 Oxygen Delivery 09/08/22 09:39 09/08/22 09:40 Temperature Pulse Rate Respiratory Rate Blood Pressure 130/81 Pulse Oximetry Oxygen Delivery Room Air Exam Narrative: reveals him to be awake alert cooperative in no obvious acute distress, head normocephalic with no cranial bruits, ear nose throat examination normal, neck is supple with no cervical bruit no thyromegaly no lymphadenopathy heart regular with no murmur lungs clear to auscultation with no rhonchi or crepitations abdomen is soft with no organomegaly neurological examination revealed him to be awake alert oriented with nonspecific non dysarthric speech pupils round regular feels the vision full extraocular movements full face symmetrical tongue midline motor examination reveals no drift of one-sided other side tone normal reflexes symmetrical plantars downgoing no evidence of sensory or cerebellar deficit. Results Labs CBC & Chem 7: 09/08/22 07:58 09/08/22 07:58 Labs: Short CBC 09/08/22 Range/Units 07:58 WBC 8.5 (4.5-10.0) K/mm3 Hgb 15.0 (14.0-18.0) g/dL Hct 46.6 (42.0-52.0) % Plt Count 182 (150-375) k/mm3 [facility] 09/08/22 07:58 Sodium 139 Potassium 4.0 Chloride 102 Carbon Dioxide 28 BUN 13 Creatinine 1.00 Glucose 96 Calcium 8.4 AMG Consult Billing Inpatient Consult [id number] Consult Low
--- NOTE | 2022-09-08 13:34 | ECG_ITS ---
Measurements Intervals [place] Rate: 95 P: 49 NH: 133 QRS: 32 QRSD: 82 T: -9 QT: 340 QTc: 428 Interpretive Statements SINUS RHYTHM LEFT VENTRICULAR HYPERTROPHY AND ST-T CHANGE [VOLTAGE CRITERIA PLUS ST/T ABNORMALITY] COMPARED TO ECG 09/05/2022 21:15:44 NO SIGNIFICANT CHANGES Electronically Signed On 09-09-2022 11:26:14 CDT by Tawana Suh M.D.
[2022-09-08 13:37] LABS: Glucose Point of Care 130 mg/dl (65-105)
[2022-09-08 14:03] LABS: Anion Gap 10 mmol/L (8-16); Blood Urea Nitrogen 13 mg/dL (9-20); Calcium 8.6 mg/dL (8.4-10.2); Carbon Dioxide 26 mmol/L (22-30); Chloride 103 mmol/L (98-107); Estimated CRCL calculation 81 ml/min; Estimated Glomerular Filt Rate > 60; Glucose 83 mg/dL (65-110); Potassium 4.1 mmol/L (3.4-5.0); Sodium 139 mmol/L (137-145)
--- NOTE | 2022-09-08 14:04 | PM.IMPN ---
Progress Note: A&P Assessment and Plan (1) Recurrent seizures: Code(s): G40.909 - Epilepsy, unspecified, not intractable, without status epilepticus Status: Acute Assessment and Plan: Patient with history of seizures following traumatic brain injury presented for recurrent seizures. He has been off of his antiepileptic medications for an unknown duration of time. Rapid response called today as patient reportedly had seizure activity while in the bathroom. Found on the ground with blood from his mouth. Seizure precautions implemented Patient evaluated by Neurology Discussed case with neurologist, Dr. Diana, following seizure activity today. Given additional 1000 mg IV Keppra per Neurology recommendation then continue 500 mg b.i.d. Keppra Stat head CT to be obtained as pt reportedly hit head following seizure Will obtain EEG on Friday (2) Hypertensive urgency: Code(s): I16.0 - Hypertensive urgency Status: Acute Assessment and Plan: Blood pressure has been poorly controlled since admission. Patient had not been taking any p.o. antihypertensives. Continue lisinopril and amlodipine Monitor BP trends and adjust medications as needed (3) Chest pain: Qualifiers: Chest pain type: unspecified Qualified Code(s): R07.9 - Chest pain, unspecified Code(s): R07.9 - Chest pain, unspecified Status: Acute Assessment and Plan: Reportedly patient complained of chest pain during admission. Denies chest pain at the time of my visit Troponin very minimally elevated with flat trend Pt evaluated by cardiology. No concern for ACS EKG with no ischemic changes Repeat EKG obtained today during rapid response with slight changes that are likely due to seizure like activity. Reviewed with cardiology, no concern and no need for further evaluation. (4) TBI (traumatic brain injury): Code(s): S06.9XAA - Unspecified intracranial injury with loss of consciousness status unknown, initial encounter Status: Acute Assessment and Plan: Patient reports TBI while serving in [place] Head CT on presentation showed no acute findings Plan Patient is homeless. Care coordination following to provide resources. Subjective Date/time seen: 09/08/22 14:04 Interval history: Date of service: 09/08/2022 Sourav Watts is a 42-year-old male with a history of TBI (injured while serving in [place]) and epilepsy who is seen in follow-up for recurrent seizures. I evaluated the patient for the 1st time today when a rapid response was called to his room. The patient was up ad jerson in the room. He went to the bathroom and pulled the bathroom cord for help. When his HERPETOLOGIST arrived, she found him on the ground with blood in the corner of his mouth. The patient states that he had a seizure and hit his head. He got back in bed and was found to be in a postictal. His main complaint was that he was very tired. He did endorse some shortness of breath and abdominal discomfort. He denied chest pain. He is unsure where he hit his head. He does not believe he bit his tongue and no laceration was visible. The patient states that he was living in [place]. He knows he is in [place] but he does not know what brought him to [place]. He knows he is in the hospital but did not know the name of this hospital. He stated the month was January but knew the year correctly. He knew it was football season and was watching football on the TV. The patient endorses drinking 1 beer 2-4 times per week, states his last drink was several days ago. Denies any illicit drug use. The patient had been evaluated in the ED on 09/04/2022, stating he had 3 seizures prior to presentation. He was discharged and presented again later that evening, stating he had another seizure-like activity without postictal state. Both times he was escorted from the hospital due to aggressive and violent behavior. He returned to
[2022-09-08] MEDS: LORazepam INJ (*CRX) 2 MG/ML VIAL 5 MG IV PUSH ×2 (14:08→20:45)
[2022-09-08] MEDS: levETIRAcetam 1000MG/NACL100ML 1,000 MG/100 ML BAG 400 MG IVPB ×2 (14:14→21:02)
[2022-09-08] MEDS: diazePAM (*CRX) 5 MG TABLET PO (15:00)
--- NOTE | 2022-09-08 15:55 | PC.NURSE ---
This patient, Sourav Watts, was received from [facility] on 09/08/22 at 1536. Patient/family oriented to unit policies and routines
--- NOTE | 2022-09-08 15:58 | PC.NURSE ---
This patient, Sourav Watts, was transferred to IMU on 09/08/22 at 1558. Personal belongings sent with patient. Report given to Lyndsey PRIETO. Appropriate documentation sent with patient.
[2022-09-08] MEDS: LORazepam INJ (*CRX) 2 MG/ML VIAL 4 MG IV PUSH (20:30)
--- NOTE | 2022-09-08 21:40 | PC.NURSE ---
Patient transferred to room 207 for closer monitoring.
[2022-09-09] VITALS (11 sets, daily range): BP systolic 108–141; BP diastolic 63–92; PULSE 64–91; RESP 16–22; TEMP 36–36.7; O2SAT 94–100
[2022-09-09] MEDS: ASPIRIN 325 MG ENTERIC TABLET PO (08:32)
[2022-09-09] MEDS: lisinopriL 10 MG TABLET PO ×2 (08:32→17:53)
[2022-09-09] MEDS: levETIRAcetam Tablet 250 MG, levETIRAcetam Tablet 500 MG 750 MG PO (08:32)
[2022-09-09] MEDS: amLODIPine BESYLATE 5 MG TABLET 10 MG PO (08:32)
--- NOTE | 2022-09-09 10:08 | PM.PNCARD ---
Progress Note: A&P Assessment and Plan (1) Chest pain: Qualifiers: Chest pain type: unspecified Qualified Code(s): R07.9 - Chest pain, unspecified Code(s): R07.9 - Chest pain, unspecified Status: Acute Assessment and Plan: No ischemic wall motion abnormalities noted on echo, atypical chest pain with no history of any ischemic sounding chest pain. His troponin levels were barely out of the normal range. No cardiac recommendations to make at this time. Cardiology will sign off. Please do not hesitate to contact us with any questions. Subjective Date/time seen: 09/09/22 10:08 Cardiology follow up for elevated troponin Patient feels well this morning and has no complaints of any kind. Review of Systems Constitutional: Constitutional: Reports no additional constitutional complaints Eyes: Eyes: Reports no additional eye complaints ENT: Reports system reviewed and no additional complaints, except as documented Cardiovascular: Cardiovascular: Reports no additional cardiovascular complaints Respiratory: Respiratory: Reports no additional respiratory complaints Gastrointestinal: Gastrointestinal: Reports no additional gastrointestinal complaints Musculoskeletal: Musculoskeletal: Reports arthralgias Integumentary/Breasts: Skin/Breast: Reports system reviewed and no additional complaints, except as docu Neurologic: Reports as per HPI Endocrine: Endocrine: Reports no additional endocrine complaints Hematologic/Lymphatic: Hematologic/Lymphatic: Reports no additional hematologic/lymphatic complaints Allergic/Immunologic: Allergic/Immunologic: Reports no additional allergic/immunologic complaints Exam Const: General: comfortable and no acute distress Other: Well-developed well-nourished man appearing his stated age multiple tattoos he is pleasant and cooperative HENMT: Mouth: Yes moist mucous membranes Eyes: Sclera: sclerae normal Neck: Neck: supple and no JVD Carotids: normal carotid upstroke Resp: Effort & Inspection: normal respiratory effort Auscultation: clear to auscultation bilaterally Cardio: Rate: regular rate Rhythm: regular rhythm Heart sounds: S1 normal heart sound present, S2 normal heart sound present, no gallops, no murmurs and no rubs GI: Auscultation: normal bowel sounds Skin: General skin exam: normal color Neuro: Other: Alert and oriented, normal cognition Extrem: Other: No edema, good pulses Objective Data Vital Signs Vital Signs: Vital Signs - 24 hr 09/08/22 13:34 09/08/22 15:00 09/08/22 15:37 Temperature 36.4 C Pulse Rate 96 86 Respiratory Rate 26 H 16 Blood Pressure 178/105 H 144/91 H Pulse Oximetry 100 100 100 Oxygen Delivery Nasal Cannula Nasal Cannula Oxygen Flow Rate 2 2 09/08/22 15:39 09/08/22 16:30 09/08/22 16:00 Temperature 36.9 C 36.4 C L Pulse Rate 64 79 Respiratory Rate 24 H 16 Blood Pressure 148/118 H 147/93 H Pulse Oximetry 100 100 100 Oxygen Delivery Nasal Cannula Oxygen Flow Rate 2 09/08/22 14:03 09/08/22 16:00 09/08/22 18:14 Temperature Pulse Rate 95 74 67 Respiratory Rate Blood Pressure Pulse Oximetry Oxygen Delivery Oxygen Flow Rate 09/08/22 20:00 09/08/22 21:07 09/08/22 23:12 Temperature 36.1 C L 36.6 C Pulse Rate 66 96 71 Respiratory Rate 20 16 20 Blood Pressure 143/83 H 130/88 Pulse Oximetry 100 94 96 Oxygen Delivery Nasal Cannula Oxygen Flow Rate 3 09/08/22 20:00 09/08/22 22:00 09/09/22 00:00 Temperature Pulse Rate 68 75 70 Respiratory Rate Blood Pressure Pulse Oximetry Oxygen Delivery Oxygen Flow Rate 09/09/22 01:31 09/09/22 04:00 09/09/22 04:00 Temperature Pulse Rate 67 64 Respiratory Rate Blood Pressure Pulse Oximetry 97 Oxygen Delivery Nasal Cannula Oxygen Flow Rate 2 09/09/22 04:00 09/09/22 05:59 09/09/22 08:00 Temperature 36.4 C 36.0 C L Pulse Rate 71 78 76 Respiratory Rate 18 1
--- NOTE | 2022-09-09 11:37 | PC.NURSE ---
This patient, Sourav Watts, was transferred to [ [id number]] on 09/09/22 at 1130. Personal belongings sent with patient. Report given to [CONNER Ayala @ 1120 ]. Appropriate documentation sent with patient.
--- NOTE | 2022-09-09 12:00 | PC.NURSE ---
Pt transferred from [facility]. Resting in bed with jerking motion. Ativan given as ordered for possible seizure activity. VS remain stable. Pt resting comfortably after medication given. Will monitor.
[2022-09-09] MEDS: LORazepam INJ (*CRX) 2 MG/ML VIAL 5 MG IV PUSH ×2 (12:07→20:29)
--- NOTE | 2022-09-09 13:29 | PM.IMPN ---
Progress Note: A&P Assessment and Plan (1) Recurrent seizures: Code(s): G40.909 - Epilepsy, unspecified, not intractable, without status epilepticus Status: Acute Assessment and Plan: Pt. has had unwitnessed seizure during this hospitalization and was found on the floor. Seizure precautions implemented Patient evaluated by Neurology Keppra increased to 750 mg BID. Stat head CT to be obtained yesterday was negative for any acute findings. Awaiting EEG results. (2) Hypertensive urgency: Code(s): I16.0 - Hypertensive urgency Status: Acute Assessment and Plan: Blood pressure has been poorly controlled since admission. Patient had not been taking any p.o. antihypertensives. Continue lisinopril and amlodipine Monitor BP trends and adjust medications as needed (3) Chest pain: Qualifiers: Chest pain type: unspecified Qualified Code(s): R07.9 - Chest pain, unspecified Code(s): R07.9 - Chest pain, unspecified Status: Acute Assessment and Plan: Reportedly patient complained of chest pain during admission. Denies chest pain at the time of my visit Troponin very minimally elevated with flat trend Pt evaluated by cardiology. No concern for ACS EKG with no ischemic changes Repeat EKG obtained today during rapid response with slight changes that are likely due to seizure like activity. Reviewed with cardiology, no concern and no need for further evaluation or intervention. (4) TBI (traumatic brain injury): Code(s): S06.9XAA - Unspecified intracranial injury with loss of consciousness status unknown, initial encounter Status: Acute Assessment and Plan: Patient reports TBI while serving in [facility] Head CT on presentation and after fall both demonstrate normal brain without acute findings. Plan Patient is homeless. Care coordination following to provide resources. Time Spent With Patient Time with patient: 15 - 25 minutes Subjective Date/time seen: 09/09/22 3553 This pt. was examined at the bedside today in interval assessment. He is resting quietly and has no complaints at this time of CP, dyspnea, but does endorse a headache after having a seizure yesterday with head injury. CT of head post fall was normal, and he has an EEG scheduled for today. Cardiology consulted and there are no further recommendations for treatment from their standpoint. Neurology is also following and is maintaining his current dose of Keppra at 500 mg BID. Review of Systems Review of Systems: All systems reviewed & are unremarkable except as noted in HPI and below Exam Narrative: ` Const: General: comfortable and no acute distress Eyes: General: appearance normal, both eyes and all related structures Sclera: sclerae normal Pupils: Equal, round and reactive pupils present EOM: EOMs intact bilaterally Neck: Neck: supple and no JVD Lymphatic: lymphadenopathy not noted Resp: Effort & Inspection: normal respiratory effort Auscultation: clear to auscultation bilaterally Cardio: Rate: regular rate Rhythm: regular rhythm Heart sounds: no gallops, no murmurs and no rubs GI: Inspection: non-distended GI Palp: Yes Soft to palpation, No Tenderness to palpation present (GI) and No Guarding due to palpation present (GI) Auscultation: normal bowel sounds Skin: General skin exam: normal color and no rashes or lesions noted Lesions: no lesions noted Rashes: no rashes noted Wounds: no wounds Neuro: General: gait normal Speech: normal speech Motor exam (neuro): 5/5 motor strength present throughout and Normal motor muscle tone present throughout Sensory Exam: normal sensation Extrem: General: normal to inspection and no edema Other: Freely and equally MAEW without deficit. Psych: Mental Status: mental status grossly normal Affect: normal affect Objective Data Vital Signs Vital Signs: Vital Signs - 24 hr 09/08/22 13:34 09/08/22 15:00
[2022-09-09 14:37] LABS: Prolactin 11.7 ng/mL (***)
--- NOTE | 2022-09-09 16:22 | PC.NURSE ---
Pt noted to be jerking in bed from hallway. This nurse entered room to check on pt. Pt continues with jerking motions and head hanging out of bed behind siderail. Nurse asked pt to help in assisting to set up and he is a large person and head hung behind railing. Pt told this nurse to shut up . Jerking motion continues. Pt assisted to back. Jerky motion stopped and pt resting comfortably. Call light in reach.
--- NOTE | 2022-09-09 17:30 | PC.NURSE ---
This nurse entered room, with CHRISTIElenniepavel waiting outside room for safety reasons, to give pt evening medication. IV noted to be out. Pt had blood on his hand and on his face. This nurse asked pt what happened and pt stated I had a seizure 30 minutes ago and I have been waiting for somebody to come in here and take care of me. Why don't you leave and get a real nurse to come in. Get the fuck out of my room. This nurse exited room and notified charge nurse.
[2022-09-09] MEDS: ACETAMINOPHEN 325 MG TABLET 650 MG PO (19:58)
--- NOTE | 2022-09-09 21:34 | PC.NURSE ---
Patient has had 2 seizures since the start of the shift at 1900pm. Ativan given PRN, patient is watching TV and refusing to take his Levetiracetam, will notify Provider.
[2022-09-10] VITALS (7 sets, daily range): BP systolic 106–136; BP diastolic 69–89; PULSE 70–90; RESP 18; TEMP 36.6; O2SAT 92–100
[2022-09-10] MEDS: lisinopriL 10 MG TABLET PO ×2 (09:22→16:11)
[2022-09-10] MEDS: amLODIPine BESYLATE 5 MG TABLET 10 MG PO (09:22)
[2022-09-10] MEDS: levETIRAcetam Tablet 250 MG, levETIRAcetam Tablet 500 MG 750 MG PO (09:22)
[2022-09-10] MEDS: ASPIRIN 325 MG ENTERIC TABLET PO (09:22)
--- NOTE | 2022-09-10 12:13 | WPDNEUROLOGY ---
Neurology EEG Report General Information Date of Study: 09/10/22 TEST Routine EEG DIAGNOSIS epilepsy CONDITION OF RECORDING Awake, drowsy, and asleep. High impedances due to sweaty/oily skin EEG NUMBER [id number] CLINICAL HISTORY Patient with a history of epilepsy. Presented due to breakthrough seizure in the setting of medication non-compliance. EEG DESCRIPTION During the awake state with eyes closed the background consists of 9 Hz posterior dominant rhythm. The recording is continuous. No significant asymmetries of background activities are noted. With drowsiness there is was waxing and waning of the dominant rhythm with eventual replacement by a mixture of beta, alpha, and theta activity. As the patient enters stage II sleep, symmetrical spindles are present. Arousal is unremarkable. There are no epileptiform discharges or seizures during this recording. Hyperventilation and photic stimulation were not performed. IMPRESSION This is a normal routine EEG recorded in awake and asleep states. There are no electrographic seizures identified, nor are there any epileptiform discharges. Please note that a normal EEG cannot exclude a seizure disorder. Clinical correlation is recommended.
--- NOTE | 2022-09-10 13:18 | PM.IMPN ---
Progress Note: A&P Assessment and Plan (1) Recurrent seizures: Code(s): G40.909 - Epilepsy, unspecified, not intractable, without status epilepticus Status: Acute Assessment and Plan: Pt. has had unwitnessed seizure during this hospitalization, was found on the floor at one time. Today he reports unwitnessed seizure this morning. Seizure precautions Neurology consulted and appreciate recommendations. Keppra increased to 1000 mg BID. Stat head CT to be obtained 09/08/22 and was negative for any acute findings. EEG without acute findings. 09/10/2022 Patient reports previously taking high dose gabapentin TID, depakote and keppra 1000 mg BID at once previously, but stopped them more than one month ago after becoming homeless. PRN ativan IV for seizure activity. (2) Hypertensive urgency: Code(s): I16.0 - Hypertensive urgency Status: Acute Assessment and Plan: Chronic, uncontrolled. Patient had not been taking any p.o. antihypertensives. Continue lisinopril and amlodipine Monitor BP trends and adjust medications as needed. BP 129/87 and stable. (3) Chest pain: Qualifiers: Chest pain type: unspecified Qualified Code(s): R07.9 - Chest pain, unspecified Code(s): R07.9 - Chest pain, unspecified Status: Acute Assessment and Plan: Reportedly patient complained of chest pain during admission. Denies chest pain at the time of my visit Troponin very minimally elevated with flat trend. Pt evaluated by cardiology. No concern for ACS EKG with no ischemic changes Patient evaluated by cardiology and no intervention needed at this time. Echocardiogram without abnormal wall motion noted. (4) TBI (traumatic brain injury): Qualifiers: Encounter type: sequela Code(s): S06.9XAA - Unspecified intracranial injury with loss of consciousness status unknown, initial encounter Status: Acute Assessment and Plan: Patient reports TBI while serving in [place] Head CT on presentation and after fall both demonstrate normal brain without acute findings. Plan Patient is homeless. Care coordination following to provide resources. Time Spent With Patient Time with patient: 15 - 25 minutes Subjective Date/time seen: 09/10/22 13:18 Patient found lying in bed sleeping. He reports just having a seizure minutes ago. Nursing reports he stated that to her as well. He denies incontinence of bladder or bowel or tongue injury. He c/o headache. No chest pain, shortness of breath, vision changes, paresthesia, or unilateral extremity weakness. Review of Systems Review of Systems: All systems reviewed & are unremarkable except as noted in HPI and below Exam Narrative: General:? Well-nourished, adult male, No acute distress. Neuro: awake, alert and oriented x4, speech clear, cranial nerves 2-12 grossly intact, no focal neuro deficits HEENT:? normocephalic, atraumatic, PERRL, EOMI, sclerae anicteric, mucous membranes moist. Neck: Supple. Chest: RR even and unlabored. Lung sounds clear to auscultation bilaterally without wheezes, rhonchi or rales, nonlabored breathing Heart: regular rate, regular rhythm with S1-S2. No murmurs, gallops or rubs. Abdomen:? soft, round, nondistended, normoactive bowel sounds, nontender to palpation. No guarding. Extremities: Moves all extremities equally and with full strength. No edema, erythema, or tenderness to palpation. Radial and dorsalis pedis pulses palpable and equal bilaterally. Skin: Fair, warm, dry and intact. No cyanosis. no rashes or lesions. Multiple scattered tattoos. Psych: Neutral mood and affect, pleasant and cooperative. Objective Data Vital Signs Vital Signs: Vital Signs - 24 hr 09/09/22 15:39 09/09/22 16:00 09/09/22 20:00 Temperature 97.3 F L 98.1 F Pulse Rate 81 78 91 Respiratory Rate 20 16 Blood Pressure 121/80 134/78 Pulse Oximetry 100 94 Oxygen Delivery
[2022-09-10] MEDS: ACETAMINOPHEN 325 MG TABLET 650 MG PO (16:11)
[2022-09-10] MEDS: LORazepam INJ (*CRX) 2 MG/ML VIAL 5 MG IV PUSH (18:12)
[2022-09-10 18:14] LABS: Glucose Point of Care 117 mg/dl (65-105)
--- NOTE | 2022-09-10 18:19 | P.PNCROSS_ITS ---
Event Note Event Note Event Note: A rapid response was called. When I arrived to the patient's room he was diana ke and looking around. The nursing staff reported that the patient had a witnessed seizure. The patient is awake and looking around. He is not incontinent of urine. He was given IV Ativan. Neurology is on the case
[2022-09-10] MEDS: levETIRAcetam 500 MG TABLET 2000 MG PO (18:44)
[2022-09-10] MEDS: GABAPENTIN 300 MG CAPSULE 600 MG PO (21:33)
[2022-09-11] VITALS: PULSE 90
[2022-09-11 06:00] VITALS: BP 116/72; PULSE 70; RESP 19; TEMP 36.1; O2SAT 100
[2022-09-11] MEDS: GABAPENTIN 300 MG CAPSULE 600 MG PO ×3 (06:22→20:55)
[2022-09-11 06:48] LABS: Alanine Aminotransferase 20 U/L (6-50); Albumin Level 3.7 g/dL (3.5-5.1); Alkaline Phosphatase 73 U/L (38-126); Anion Gap 5 mmol/L (8-16); Aspartate Amino Transferase 16 U/L (17-59); Bilirubin,Total 0.5 mg/dL (0.2-1.3); Blood Urea Nitrogen 13 mg/dL (9-20); Calcium 8.8 mg/dL (8.4-10.2); Carbon Dioxide 31 mmol/L (22-30); Chloride 104 mmol/L (98-107); Estimated CRCL calculation 75 ml/min; Estimated Glomerular Filt Rate > 60; Glucose 98 mg/dL (65-110); Potassium 3.9 mmol/L (3.4-5.0); Sodium 140 mmol/L (137-145)
[2022-09-11 07:03] LABS: Basophils Percent Auto 0.3 % (0.2-1.2); Eosinophils Absolute Auto 0.2 K/mm3 (0-0.3); Hematocrit 47.3 % (42.0-52.0); Hemoglobin 15.3 g/dL (14.0-18.0); Immature Granulocyte Absolute 0.06 K/mm3 (0.00-0.031); Immature Granulocyte Percent A 0.7 % (0-0.5); Lymphocytes Absolute Auto 2.35 K/mm3 (0.9-3.2); Lymphocytes Percent Auto 25.6 % (18.3-44.2); Mean Corpuscular HGB Conc 32.3 g/dl (32-36); Mean Corpuscular Hemoglobin 30.9 pg (26-34); Mean Corpuscular Volume 95.6 fl (80-100); Mean Platelet Volume 10.2 fl (7.4-10.4); Monocytes Absolute Auto 0.6 K/mm3 (0.1-0.6); Monocytes Percent Auto 6.7 % (2.6-8.5); Neutrophils Absolute Auto 5.9 K/mm3 (1.3-6.7); Neutrophils Percent Auto 64.7 % (45.5-73.1); Platelet Count Result 208 k/mm3 (150-375); Red Blood Count 4.95 M/mm3 (4.6-6.20); Red Cell Distribution Width 14.3 % (11.5-14.5); White Blood Count 9.2 K/mm3 (4.5-10.0)
[2022-09-11] MEDS: levETIRAcetam 500 MG TABLET 1500 MG PO ×2 (08:44→20:56)
[2022-09-11] MEDS: amLODIPine BESYLATE 5 MG TABLET 10 MG PO (08:45)
[2022-09-11] MEDS: lisinopriL 10 MG TABLET PO ×2 (08:45→16:07)
[2022-09-11] MEDS: ASPIRIN 325 MG ENTERIC TABLET PO (08:45)
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
[2022-09-11 14:00] VITALS: BP 138/86; PULSE 84; RESP 26; TEMP 36.3; O2SAT 100
--- NOTE | 2022-09-11 14:12 | WPDNEUROPN ---
Progress Note: A&P Assessment and Plan (1) TBI (traumatic brain injury): Qualifiers: Encounter type: sequela Code(s): S06.9XAA - Unspecified intracranial injury with loss of consciousness status unknown, initial encounter Status: Acute (2) Recurrent seizures: Code(s): G40.909 - Epilepsy, unspecified, not intractable, without status epilepticus Status: Acute (3) Suicidal ideation: Code(s): R45.851 - Suicidal ideations Status: Acute Plan Mr. Watts is a 42 year old male with a history of post TBI seizures who presented with increased seizure frequency in the setting of medication non-compliance. Course has been complicated by poor social situation (patient is homeless and feels that he will be unable to obtain his anti-seizure medications on discharge). He also expressed suicidal ideation today. Unclear if the unwitnessed seizures that are being self-reported by patient are truly epileptic in nature. He describes seizures as generalized convulsions, but it seems that has not had any clear post-ictal state. - Continue Keppra 1500mg BID - Disposition pending Subjective Date/time seen: 09/11/22 14:12 Interval history: Mr. Benjamin is a 42 year old male with a history of TBI with seizures presenting due to increased seizure due to medication non-compliance. Patient is homeless and has difficulty accessing his medications. Per nursing, patient has had multiple seizures during this admission that seem to be mostly self-reported. After discussion with hospitalist, it seems that most of the seizures he is complaining of have been unwitnessed by staff. He received a dose of ativan and Keppra 2g last night. His Keppra was then increased to 1500mg BID. Patient reports one seizure this morning, He describes his seizures as generalized convulsions. After discussion of importance of medication compliance, patient became tearful and expressed that he had thoughts of suicide with a plan. Discussed these concerns with patient's nurse and hospitalist. Patient subsequently placed on suicide precautions. Review of Systems Constitutional: Constitutional: Reports no additional constitutional complaints Eyes: Eyes: Reports no additional eye complaints ENT: Reports system reviewed and no additional complaints, except as documented Cardiovascular: Cardiovascular: Reports no additional cardiovascular complaints Respiratory: Respiratory: Reports no additional respiratory complaints Gastrointestinal: Gastrointestinal: Reports no additional gastrointestinal complaints Genitourinary: Genitourinary: Reports no additional male genitourinary complaints Musculoskeletal: Musculoskeletal: Reports no additional musculoskeletal complaints Integumentary/Breasts: Skin/Breast: Reports system reviewed and no additional complaints, except as docu Neurologic: Reports as per HPI Psychiatric: Psychiatric: Reports suicidal ideation Exam Const: General: comfortable and no acute distress HENMT: Mouth: Yes moist mucous membranes Eyes: Pupils: Equal, round and reactive pupils present EOM: EOMs intact bilaterally Other: L eye ptosis (chronic) Resp: Effort & Inspection: normal respiratory effort Auscultation: clear to auscultation bilaterally Cardio: Rate: regular rate Rhythm: regular rhythm GI: GI Palp: Yes Soft to palpation Auscultation: normal bowel sounds Skin: General skin exam: normal color Neuro: Other: AOx3, Pupils equal and reactive bilaterally, EOMI, L eye ptosis but otherwise face symmetric, facial sensation intact, tongue protrudes midline, palate midline. Shoulder shrug normal. Strength 5/5 throughout. Sensation decreased in left leg compared to right (chronic). FNF normal bilaterally. Language comprehension and fluency intact. Gait deferred. Extrem: General: normal to inspection Psych: Mental Status: mental status grossly normal Affect: Sad affect present Thought content: Yes Suicidali
[2022-09-11 15:31] LABS: EDCOVIDSCREEN Negative (Negative)
[2022-09-11] MEDS: LORazepam INJ (*CRX) 2 MG/ML VIAL 5 MG IV PUSH (17:58)
[2022-09-11] MEDS: MELATONIN 5 MG TABLET PO (20:56)
[2022-09-11 21:32] VITALS: BP 140/88; PULSE 95; RESP 20; TEMP 36.6; O2SAT 99
[2022-09-11] MEDS: hydrOXYzine HCL 25 MG TABLET PO (23:09)
[2022-09-11 23:55] LABS: SARS-CoV-2 RNA PCR Negative
[2022-09-12 00:30] VITALS: BP 138/90; PULSE 87; RESP 20; TEMP 36.8; O2SAT 100
--- NOTE | 2022-09-12 03:32 | PC.NURSE ---
Abelardo contaacted for transportation to [facility]. [facility] 0415. [facility] called and notified fo [facility] for transport.
--- NOTE | 2022-09-12 06:48 | P.TS_ITS ---
Transfer Discharge Sum: Prov Provider Date of admission: 09/08/22 15:21 Primary care physician: UNKNOWN,DOCTOR Admitting clinician: Ravi Allen MD Consults: 09/07/22 11:59 Consult to Physician Routine Comment: Spoke w/exchange [id number] 09/07 (, [place]) Consulting Provider: Veena Oviedo call center nurse/MD group to consult: cardiology Reason for consultation: chest pain, abnormal enzymes Has provider been notified: Yes 09/08/22 07:33 Consult to Physician Routine Comment: Spoke with 09/08/22 @0748 /us Consulting Provider: Talha Diana call center nurse/MD group to consult: Neurology Reason for consultation: Seizure Has provider been notified: Yes 09/11/22 Care Coordination Consult Routine Comment: Reason for Consult:: Crisis Intervention Attending physician on discharge: Charles Guadarrama Discharging clinician: Ilana Leal Receiving physician/facility: [facility] DS: Admitting Diagnosis Discharge Date 09/12/22 Admitting Diagnosis Hypertensive Urgency Seizures H/o traumatic brain injury DS: Discharge Diagnosis Discharge Diagnosis (1) Recurrent seizures: Code(s): G40.909 - Epilepsy, unspecified, not intractable, without status epilepticus Status: Acute Assessment and Plan: Pt. has had unwitnessed seizure during this hospitalization, was found on the floor at one time. Today he reports unwitnessed seizure this morning. * Seizure precautions * Neurology consulted and appreciate recommendations. * Stat head CT to be obtained 09/08/22 and was negative for any acute findings. * EEG without acute findings. * 09/10/2022 Patient reports previously taking high dose gabapentin TID, depakote and keppra 1000 mg BID at once previously, but stopped them more than one month ago after becoming homeless. * PRN ativan IV for seizure activity. * 09/11/22 Keppra increased to 1500 mg BID and gabapentin 600 mg Q6 hours. Questionable pseudoseizures? (2) Hypertensive urgency: Code(s): I16.0 - Hypertensive urgency Status: Acute Assessment and Plan: Chronic, uncontrolled. * Patient had not been taking any p.o. antihypertensives. * Continue lisinopril and amlodipine * Monitor BP trends and adjust medications as needed. BP stable. (3) Chest pain: Qualifiers: Chest pain type: unspecified Qualified Code(s): R07.9 - Chest pain, unspecified Code(s): R07.9 - Chest pain, unspecified Status: Acute Assessment and Plan: Reportedly patient complained of chest pain during admission. Denies chest pain at the time of my visit * Troponin very minimally elevated with flat trend. * Pt evaluated by cardiology. No concern for ACS * EKG with no ischemic changes * Patient evaluated by cardiology and no intervention needed at this time. * Echocardiogram without abnormal wall motion noted. Resolved. (4) TBI (traumatic brain injury): Qualifiers: Encounter type: sequela Code(s): S06.9XAA - Unspecified intracranial injury with loss of consciousness status unknown, initial encounter Status: Acute Assessment and Plan: Patient reports TBI while serving in [place] * Head CT on presentation and after fall both demonstrate normal brain without acute findings. (5) Suicidal ideation: Code(s): R45.851 - Suicidal ideations Status: Acute Assessment an
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
[2022-09-14 08:08] LABS: Prolactin 18.6 ng/mL (***)
== END 2022-09-12 04:45 | DRG 53 ==
LOC: ANHED 18:23 → ANHIMU 23:56 → ANH2MED 09-06 23:52 → ANHIMU 09-08 17:08 → ANH3MEDSUR 09-09 11:24
PROVIDERS: Internal Medicine; Nurse Practitioner; Nurse Practitioner Adult Health; Physician Assistant; Admitting Provider Internal Medicine; Emergency Provider Emergency Medicine; Visit Provider Nurse Practitioner Family
DX: G40.909 Epilepsy, unspecified, not intractable, without status epilepticus (principal); R45.851 Suicidal ideations; R45.850 Homicidal ideations; R07.9 Chest pain, unspecified; I16.0 Hypertensive urgency; T42.76XA Underdosing of unspecified antiepileptic and sedative-hypnotic drugs, initial encounter; Z20.822 Contact with and (suspected) exposure to COVID-19; Z91.128 Patient's intentional underdosing of medication regimen for other reason; Z87.820 Personal history of traumatic brain injury; Z59.00 Homelessness unspecified
CPT/HCPCS: 36415; 70450; 71046; 80048; 80053; 80307; 81001; 82948; 84146; 84484; 85025; 85027; 87426; 93005; 93306; 95816; 96374; 96375; 99285; A9270; C9803; G0378; J0131; J0360; J1953; J2060; U0003; U0005